=== PATIENT | female | born 1990 | race American Indian/Alaskan Native ===

== ENCOUNTER 2020-04-05 22:44 | Emergency (ER) | payer OTHER ==
[2020-04-06] MEDS ORDERED: IBUPROFEN 600 MG TAB PO ONE (02:59)
[2020-04-06] MEDS ORDERED: ACETAMINOPHEN 500 MG TAB PO ONE (02:59)
[2020-04-06 03:58] LABS: Hematocrit 41.1 % (30.3-42.9); Mean Corpuscular HGB Conc 32 % (30-34); Mean Corpuscular Volume 75 fl (79-97); Platelet Count 249 K/mm3 (140-440); Red Cell Distribution Width 16.6 % (13.2-15.2)
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
[2020-04-06 04:14] LABS: Alanine Aminotransferase 40 units/L (7-56); Albumin 4.2 g/dL (3.9-5); BUN/Creatinine Ratio 18; Blood Urea Nitrogen 16 mg/dL (7-17); Calcium 10.2 mg/dL (8.4-10.2); Hemolysis Index 19
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
[2020-04-06 05:19] VITALS: BP 121/88
[2020-04-06 06:13] LABS: Anisocytosis Few; Basophils % (Manual) 0 % (0.0-1.8); Eosinophils % (Manual) 0 % (0.0-4.3); Hypochromasia 1+; Ovalocytes Few; Schistocytes Few; Tear Drop Cells Rare; Total Cells Counted 100
[2020-04-06 06:14] LABS: Platelet Estimate Consistent w Auto
== END 2020-04-06 05:18 | disposition home or self-care (01) ==
LOC: ED 22:44
DX: S43.401A Unspecified sprain of right shoulder joint, initial encounter (principal); R07.89 Other chest pain; I11.0 Hypertensive heart disease with heart failure; I50.9 Heart failure, unspecified; E11.9 Type 2 diabetes mellitus without complications; Z79.1 Long term (current) use of non-steroidal anti-inflammatories (NSAID); Z79.899 Other long term (current) drug therapy; V49.49XA Driver injured in collision with other motor vehicles in traffic accident, initial encounter; Y93.89 Activity, other specified; Y92.410 Unspecified street and highway as the place of occurrence of the external cause; Y99.8 Other external cause status
CPT/HCPCS: 36415; 71046; 80053; 83880; 84484; 85007; 85025